=== PATIENT | male | born 1975 | race Caucasian/White ===

== ENCOUNTER 2020-01-08 00:11 | Emergency (ER) | payer OTHER ==
[~2020-01-08] VITALS: Ht 182.9 cm; Wt 97.5 kg
--- NOTE | 2020-01-08 00:11 | NUR ---
PT CORY FROM HOME C/O ETOH "FOUND BY IN THE ROOM WITH A BOTTLE OF TEQUILLA" PT IS AAO3, NOT IN RESPIRATORY DISTRESS, HOOKED TO MONITOR, KEPT RESTED AND COMFORTABLE, WILL CONTINUE TO MONITOR.
--- NOTE | 2020-01-08 01:05 | NUR ---
PT AWAKE, AAOX4. AMBULATORY WITH STEADY GAIT
--- NOTE | 2020-01-08 01:07 | NUR ---
CALLED PT'S FOR QUALITY ASSURANCE DIRECTOR, ON THE WAY TO HOSPITAL
--- NOTE | 2020-01-08 01:27 | NUR ---
Patient discharged to home in stable condition. Written and verbal after care instructions given to Patient and verbalizes understanding of instruction.
[2020-01-08 01:28] VITALS: BP 118/61
== END 2020-01-08 01:29 | disposition home or self-care (01) ==
LOC: ER 00:12
DX: F10.129 Alcohol abuse with intoxication, unspecified (principal); Y90.9 Presence of alcohol in blood, level not specified